=== PATIENT | female | born 1995 | race Caucasian/White ===

== ENCOUNTER 2021-09-11 15:32 | Inpatient (IN) | payer MEDICAID, SELFPAY ==
[~2021-09-11] VITALS: Ht 160 cm; Wt 51.3 kg
[2021-09-11 16:44] VITALS: BP 120/79
--- NOTE | 2021-09-11 17:12 | NUR ---
LAB AT BEDSIDE.
--- NOTE | 2021-09-11 17:13 | NUR ---
26 Y/O FEMALE C/O LUQ ABD PAIN 07/30 DESCRIBES ACHING NON-RADIATING X 3 DAYS. DENIES N/V. DENIES FEVER/CHILLS. ABD IS SOFT, ROUND, NON-TENDER, BOWEL SOUNDS ACTIVE X4, LAST BM 09/09/21. DENIES PMH NKA
[2021-09-11 17:22] LABS: BASOPHILS % (AUTO) 0.3 % (0.0-2.0); HEMATOCRIT 40.1 % (36-48); HEMOGLOBIN 13.8 g/dL (12.0-16.0); LYMPHOCYTES % (AUTO) 5.9 % (20.5-51.1); MEAN CORPUSCULAR HEMOGLOBIN 31 pg (27-31); MEAN CORPUSCULAR HGB CONC 34 g/dL (33-37); MEAN CORPUSCULAR VOLUME 90.2 fL (80-94); MONOCYTES # (AUTO) 0.7 K/uL (0.8-1.0); MONOCYTES % (AUTO) 3.7 % (1.7-9.3); NEUTROPHILS # (AUTO) 15.8 K/uL (1.8-7.7); NEUTROPHILS % (AUTO) 90.1 % (42.2-75.2); PLATELET COUNT (AUTO) 303 K/uL (140-450); RED BLOOD CELL COUNT(AUTO) 4.45 MIL/uL (4.20-5.40); RED CELL DISTRIBUTION WIDTH 12.6 % (11.6-13.7); WHITE BLOOD COUNT (AUTO) 17.5 K/uL (4.8-10.8)
[2021-09-11 17:39] LABS: ALBUMIN 4.3 g/dL (3.4-5.0); ANION GAP 19.1 (8-16); CREATININE 0.8 mg/dL (0.6-1.3); POTASSIUM 4.1 mmol/L (3.5-5.1); TOTAL BILIRUBIN 0.4 mg/dL (0.0-1.0)
--- NOTE | 2021-09-11 18:00 | NUR ---
DR SINCLAIR AT BEDSIDE.
--- NOTE | 2021-09-11 18:46 | NUR ---
DR SINCLAIR AT BEDSIDE STARTED IV ON R AC VIA ULTRASOUND.
--- NOTE | 2021-09-11 18:49 | NUR ---
[facility]
--- NOTE | 2021-09-11 19:06 | NUR ---
BACK FROM CT SCAN.
--- NOTE | 2021-09-11 19:43 | NUR ---
PT HELPED TO RESTROOM.
[2021-09-11] MEDS ORDERED: MORPHINE SULFATE 4 MG/ML SYR IVP ONE ×2 (19:50→20:55)
--- NOTE | 2021-09-11 20:01 | NUR ---
US AT BEDSIDE.
--- NOTE | 2021-09-11 21:16 | NUR ---
Patient appears to be resting comfortably in bed. Vital Signs within normal limits. Respirations even and unlabored. BOTH BEDRAILS UP AND BED AT LOWEST POSITION.
[2021-09-11] MEDS ORDERED: PIPERACILLIN/TAZOBACTAM 3.375 GM in DEXTROSE 5% 50 ML IV ONE ×2 (21:50→22:18)
[2021-09-11] MEDS ORDERED: NACL 0.9% 1,000 ML IV ONE ×2 (21:50)
[2021-09-11] MEDS ORDERED: DEXT 5% / NACL 0.9% 1,000 ML IV SCH ×2 (22:00→22:15)
--- NOTE | 2021-09-11 22:00 | NUR ---
DR. Olivia AT BEDSIDE.
--- NOTE | 2021-09-11 22:01 | NUR ---
Patient will be admitted to care of GERARDO TEIXEIRA. Admited to MED SURG. Will go to room 119B. Belongings list completed. Report to GERARDO TEIXEIRA.
[2021-09-11] MEDS ORDERED: PIPERACILLIN/TAZOBACTAM 3.375 GM VIAL IV ONE (22:42)
--- NOTE | 2021-09-11 23:15 | NUR ---
RECEIVED REPORT FOR PT OVER THE PHONE FROM ER NURSE. PT IN STABLE CONDITION.
[2021-09-11 23:30] VITALS: BP 123/81
[2021-09-12] MEDS ORDERED: ZOLPIDEM 5 MG TAB PO PRN (00:15)
[2021-09-12] MEDS ORDERED: guaiFENesin DM 200/20 MG-10 ML 10 ML UDC PO PRN (00:15)
[2021-09-12] MEDS ORDERED: ONDANSETRON 4 MG/2 ML VIAL IM/IVP PRN (00:15)
[2021-09-12] MEDS ORDERED: ACETAMINOPHEN 325 MG TAB PO PRN (00:15)
[2021-09-12] MEDS ORDERED: DOCUSATE SODIUM 100 MG GELCAP PO PRN (00:15)
[2021-09-12] MEDS ORDERED: HYDROcodone/APAP 7.5/325 MG 1 TAB PO PRN (00:15)
[2021-09-12] MEDS ORDERED: MORPHINE SULFATE 2 MG/ML SYR IVP PRN ×2 (00:15→17:35)
[2021-09-12 00:41] LABS: APPEARANCE,URINE CLOUDY (CLEAR); BILIRUBIN,URINE NEGATIVE (NEGATIVE); BLOOD, URINE 2+ (NEGATIVE); COLOR,URINE YELLOW (YELLOW); LEUKOCYTE ESTERASE ,URINE NEGATIVE (NEGATIVE); NITRITE, URINE NEGATIVE (NEGATIVE); UGLUCOSE NEGATIVE (NEGATIVE)
[2021-09-12 00:49] LABS: RBC,URINE 0-5 /HPF (0-5); URINE AMORPHOUS URATE 3+ /HPF (None Seen); WBC,URINE 0-5 /HPF (0-5)
[2021-09-12 00:50] LABS: BARBITURATE, URINE NEGATIVE ng/ml (NEG <=200)
[2021-09-12 00:51] LABS: BENZODIAZEPINE, URINE NEGATIVE ng/mL (NEG <=200); CANNABINOID, URINE NEGATIVE ng/mL (NEG <=50); COCAINE, URINE NEGATIVE ng/mL (NEG <=300); OPIATE, URINE NEGATIVE ng/mL (NEG <=2000); PHENCYCLIDINE SCREEN,URINE NEGATIVE ng/mL (NEG <=25)
[2021-09-12 00:51] LABS: PROTHROMBIN TIME 8.9 secs (10.8-13.4)
[2021-09-12 00:54] LABS: CHOL/HDL RATIO 3.1 (1-4.5); FREE T4 (FREE THYROXINE) 0.98 ng/dL (0.76-1.46); MAGNESIUM 2.2 mg/dL (1.8-2.4); PHOSPHORUS 3.6 mg/dL (2.5-4.9); THYROID STIMULATING HORMONE 0.64 uIU/mL (0.34-3.74)
[2021-09-12] MEDS: DEXT 5% /NACL 0.9% 1,000 ML IV SCH ×4 (01:24→23:41)
--- NOTE | 2021-09-12 01:30 | NUR ---
PT WHEELED BY TERRANCE TO ROOM 119, SHE AMBULATED INDEPENDENTLY TO BED B. SHE IS A0X4 [place] AND [place] SPEAKING SHE IS ON ROOM AIR, AND SKIN INTACT. MRSA SWAB DONE, IV SITE 20G ON RIGHT F/ARM INTACT. MD ORDERED D5N/S TO RUN AT 120 MLS/HR. IV FLUIDS HUNG AND RUNNING ORDERED. USED [employer] INDEPENDENT FILM MAKER SYSTEM WITH INDEPENDENT FILM MAKER RAPHEL . ADMISSION QUESTIONS TRANSLATED. PT C/OF 10/10 PAIN AND WAS GIVEN ORDERED IVP MORPHINE. CXR AND EKG DONE AT BEDSIDE. ALL UNIVERSAL FALLS PRECAUTIONS IN PLACE.
[2021-09-12 04:00] VITALS: BP 126/78
[2021-09-12] MEDS ORDERED: PIPERACILLIN/TAZOBACTAM 3.375 GM VIAL IV ONE (05:38)
[2021-09-12] MEDS: PIPERACILLIN/TAZOBACTAM 3.375 GM in DEXTROSE 5% 50 ML IV SCH ×4 (05:44→21:12)
[2021-09-12 05:54] LABS: BASOPHILS % (AUTO) 0.3 % (0.0-2.0); EOSINOPHILS # (AUTO) 0.1 K/uL (0-0.4); EOSINOPHILS % (AUTO) 0.6 % (0.0-4.0); HEMATOCRIT 34.8 % (36-48); HEMOGLOBIN 12.1 g/dL (12.0-16.0); LYMPHOCYTES # (AUTO) 1.9 K/uL (2.5-16.5); LYMPHOCYTES % (AUTO) 19.3 % (20.5-51.1); MEAN CORPUSCULAR HEMOGLOBIN 31 pg (27-31); MEAN CORPUSCULAR HGB CONC 35 g/dL (33-37); MEAN CORPUSCULAR VOLUME 89.8 fL (80-94); MONOCYTES # (AUTO) 0.8 K/uL (0.8-1.0); MONOCYTES % (AUTO) 8.6 % (1.7-9.3); NEUTROPHILS % (AUTO) 71.2 % (42.2-75.2); PLATELET COUNT (AUTO) 280 K/uL (140-450); RED BLOOD CELL COUNT(AUTO) 3.87 MIL/uL (4.20-5.40); RED CELL DISTRIBUTION WIDTH 12.5 % (11.6-13.7); WHITE BLOOD COUNT (AUTO) 9.8 K/uL (4.8-10.8)
--- NOTE | 2021-09-12 06:03 | NUR ---
PT RECEIVED PRESCRIBED ABX ORDERED. EXPLAIN PT WHY SHE IS RECEIVING IT AND VERBALIZING UNDERSTANDING. PT STATED SHE IS IN PAIN 10/10. NO FACIAL GRIMACING NOTED, VITAL SIGNS STABLE, NO GUARDING, AND RELAXED. EXPLAINED THAT HER NEXT PAIN MEDICATION ISN'T DUE FOR ANOTHER TWO HOURS. EXPLAINED I'LL CONTACT MD FOR ADDITIONAL PAIN MEDICATION.
[2021-09-12 06:17] LABS: ALBUMIN 3.3 g/dL (3.4-5.0); ANION GAP 15.7 (8-16); CARBON DIOXIDE 22.7 mmol/L (21-32); CREATININE 0.6 mg/dL (0.6-1.3); POTASSIUM 3.4 mmol/L (3.5-5.1); TOTAL BILIRUBIN 0.7 mg/dL (0.0-1.0)
--- NOTE | 2021-09-12 07:12 | NUR ---
RECEIVED REPORT FROM PERSONNEL INTERVIEWER NURSE FOR CONTINUITY OF CARE. PT STABLE. NO S/S OF DISTRESS. BREATHING SYMMETRICAL. CALL LIGHT IN REACH. ALL SAFETY MEASURES IN PLACE. IV RUNNING PER MD ORDER.
[2021-09-12 08:00] VITALS: BP 121/79
--- NOTE | 2021-09-12 08:16 | NUR ---
PATIENT HAS BEEN SCREENED AND CATEGORIZED LOW NUTRITION RISK. PATIENT WILL BE SEEN WITHIN 7 DAYS OF ADMISSION. 09/18/[address]
[2021-09-12] MEDS: PANTOPRAZOLE 40 MG TABEC PO SCH ×2 (09:00→09:31)
[2021-09-12] MEDS: POTASSIUM CHLORIDE 10 MEQ TABER PO PRN ×2 (09:31→09:36)
--- NOTE | 2021-09-12 09:43 | NUR ---
PT RESTING IN BED. FAMILY AT BEDSIDE. PT STABLE. NO S/S OF DISTRESS. BREATHING SYMMETRICAL. CALL LIGHT IN REACH. ALL SAFETY MEASURES IN PLACE. IV RUNNING PER MD ORDER. PT PROVIDED COPY OF ADVANCE DIRECTIVE FOR BLOOD TRANSFUSION. PT STATED NOT WANTING ANY BLOOD PRODUCTS D/T [employer]IEFS
--- NOTE | 2021-09-12 12:36 | NUR ---
OR NURSE TAKING PT FOR PROCEDURE. ZOSYN TO CONTINUE RUNNING IN OR. PT STABLE. NO S/S OF DISTRESS. ALL SAFETY MEASURES IN PLACE
[2021-09-12] MEDS ORDERED: LIDOCAINE 1% 500 MG/50 ML VIAL ONE (12:48)
[2021-09-12] MEDS ORDERED: BUPIVACAINE-MPF/EPI 0.5% 30 ML VIAL INJ ONE (12:48)
[2021-09-12] MEDS ORDERED: PROPOFOL 200 MG/20 ML VIAL IV ONE (13:13)
[2021-09-12] MEDS ORDERED: MIDAZOLAM 2 MG/2 ML VIAL ONE (13:13)
[2021-09-12] MEDS ORDERED: NEOSTIGMINE 1:1000 10 MG/10 ML VIAL ONE (13:13)
[2021-09-12] MEDS ORDERED: GLYCOPYRROLATE 0.2 MG/ML VIAL ONE (13:13)
[2021-09-12] MEDS ORDERED: METOCLOPRAMIDE 10 MG/2 ML INJ VIAL ONE (13:13)
[2021-09-12] MEDS ORDERED: SUCCINYLCHOLINE CHLORIDE 200 MG/10 ML VIAL IVP ONE (13:13)
[2021-09-12] MEDS ORDERED: SEVOFLURANE 250 ML BTL INH ONE (13:13)
[2021-09-12] MEDS ORDERED: DEXAMETHASONE 4 MG/ML VIAL ONE (13:13)
[2021-09-12] MEDS ORDERED: HYDROmorphone PFS 2 MG/ML SYR ONE (13:14)
--- NOTE | 2021-09-12 14:33 | NUR ---
PT IS STILL IN OR.
[2021-09-12 16:00] VITALS: BP 134/84
--- NOTE | 2021-09-12 16:24 | NUR ---
PT RETURNED FROM PROCEDURE. NO S/S OF DISTRESS. FLUIDS RUNNING PER MD ORDER. CALL LIGHT IN REACH. ALL SAFETY MEASURES IN PLACE
[2021-09-12] MEDS ORDERED: HYDROcodone/APAP 5/325 MG 1 TAB TAB PO PRN (17:35)
[2021-09-12] MEDS ORDERED: HYDROmorphone 1 MG/ML AMP IVP PRN (17:35)
[2021-09-12] MEDS ORDERED: ONDANSETRON 4 MG/2 ML VIAL IV PRN (17:35)
--- NOTE | 2021-09-12 18:35 | NUR ---
ASSISTED PT TO RESTROOM. RETAPED IV, IV PATENT. NO S/S OF DISTRESS. CHANGED PT GOWN AND CHUCKS. CALL LIGHT IN REACH. ALL SAFETY MEASURES IN PLACE. FAMILY AT BEDSIDE
--- NOTE | 2021-09-12 19:22 | NUR ---
ENDORSED PATIENT TO TRIPE WASHER NURSE. NO S/S OF DISTRESS. BREATHING SYMMETRICAL. CALL LIGHT IN REACH. ALL SAFETY MEASURES IN PLACE.
--- NOTE | 2021-09-12 19:30 | NUR ---
RECEIVED PT FROM DAY RN. PT IS AWAKE ON RA. BY BEDSIDE. CALL LIGHT WITHIN REACH. ALL SAFETY MEASURES TAKEN. WILL CONTINUE TO MONITOR AND PROVIDE PLAN OF CARE.
[2021-09-12 20:00] VITALS: BP 126/73
--- NOTE | 2021-09-12 20:00 | NUR ---
PT LYING IN BED AOX 4 SHE IS ON ROOM AIR AND HAS IV SITE RAC 20G RUNNING D5N/S AT 120. PT HAS 4 SURGICAL SCARS ON ABDOMEN , THEY ARE SMALL AND CLOSED WITH DERMABOND, THERE IS NO S/S OF INFECTION. PT COMPLETED MOST OF HER DINNER. V/S FOLLOWS: T 98.1 P 100 R 18 B/P 126/73 02 95% ON ROOM AIR. ALL UNIVERSAL FALLS PRECAUTIONS IN PLACE.
[2021-09-12] MEDS: MORPHINE SULFATE 4 MG/ML SYR IV PRN (21:16)
--- NOTE | 2021-09-12 21:20 | NUR ---
PT STAND BY ASSIST TO TOILET AND BACK , SHE WAS ABLE TO AMBULATE WITH A STEADY GAIT. ZOSYN HUNG AND RUNNING ORDERED. PT ALSO RECEIVED REQUESTED MORPHINE FOR SEVERE PAIN. EDUCATION REGARDING MEDICATION PROVIDED AT BEDSIDE. PT VERBALIZED UNDERSTANDING,. ALL UNIVERSAL FALLS PRECAUTIONS IN PLACE.
--- NOTE | 2021-09-12 23:00 | NUR ---
ROUNDS DONE, PT IN BED ASLEEP WITH NO C/O VOICED. FLUIDS REPLACED AND RUNNING ORDERED. ALL UNIVERSAL FALLS PRECAUTIONS IN PLACE.
[2021-09-13] MEDS: PIPERACILLIN/TAZOBACTAM 3.375 GM in DEXTROSE 5% 50 ML IV SCH (04:24)
[2021-09-13] MEDS: POTASSIUM CHLORIDE 10 MEQ TABER PO PRN (04:24)
[2021-09-13] MEDS: MORPHINE SULFATE 4 MG/ML SYR IV PRN ×2 (04:25→08:47)
--- NOTE | 2021-09-13 04:30 | NUR ---
PT C/O 10/10 PAIN IN ABDOMEN, SHE WAS GIVEN IVP MORPHINE . PT POTASSIUM LEVEL 3.4, SHE WAS GIVEN SUPPLEMENTAL POTASSIUM K DUR. ALSO ORDERED IV ABT ZOSYN HUNG AND RUNNING AT 100MLS/HR. ALL UNIVERSAL FALLS PRECAUTIONS IN PLACE.
[2021-09-13 05:51] LABS: BASOPHILS % (AUTO) 0.3 % (0.0-2.0); EOSINOPHILS % (AUTO) 0.1 % (0.0-4.0); HEMATOCRIT 34.6 % (36-48); HEMOGLOBIN 11.8 g/dL (12.0-16.0); MEAN CORPUSCULAR HEMOGLOBIN 31 pg (27-31); MEAN CORPUSCULAR HGB CONC 34 g/dL (33-37); MEAN CORPUSCULAR VOLUME 90.9 fL (80-94); MONOCYTES # (AUTO) 0.7 K/uL (0.8-1.0); MONOCYTES % (AUTO) 6.4 % (1.7-9.3); NEUTROPHILS # (AUTO) 8.8 K/uL (1.8-7.7); NEUTROPHILS % (AUTO) 76.2 % (42.2-75.2); PLATELET COUNT (AUTO) 274 K/uL (140-450); RED BLOOD CELL COUNT(AUTO) 3.81 MIL/uL (4.20-5.40); RED CELL DISTRIBUTION WIDTH 12.7 % (11.6-13.7); WHITE BLOOD COUNT (AUTO) 11.6 K/uL (4.8-10.8)
[2021-09-13 06:10] LABS: ALBUMIN 3.3 g/dL (3.4-5.0); ANION GAP 14.4 (8-16); CARBON DIOXIDE 24.9 mmol/L (21-32); CREATININE 0.5 mg/dL (0.6-1.3); POTASSIUM 3.3 mmol/L (3.5-5.1); TOTAL BILIRUBIN 0.6 mg/dL (0.0-1.0)
[2021-09-13 08:00] VITALS: BP 122/81
--- NOTE | 2021-09-13 08:17 | NUR ---
Patient awake, alert and oriented, able to verbalize needs. Complains of abdominal pain rating it at 9/10. Safety measures in place and patient has no further needs.
[2021-09-13] MEDS: PANTOPRAZOLE 40 MG TABEC PO SCH (08:46)
[2021-09-13] MEDS: DEXT 5% /NACL 0.9% 1,000 ML IV SCH (09:35)
[2021-09-13] MEDS ORDERED: AMOX-999 PO (10:05)
[2021-09-13] MEDS ORDERED: ACET-10509 PO (10:05)
[2021-09-13] MEDS ORDERED: IBUP-1842 PO (10:05)
[2021-09-13] MEDS ORDERED: POTA10TA70 PO (10:08)
[2021-09-13 10:51] VITALS: BP 122/81
--- NOTE | 2021-09-13 12:08 | NUR ---
Patient discharged and was given information on follow up appointments, medications and all questions regarding discharge were answered. Taken off the unit in wheeled chair and off in private vehicle with family.
--- NOTE | 2021-09-13 13:04 | NUR ---
DC PLANNING: THE PATIENT ADMITTED FROM HOME THROUGH THE ED WITH C/O ABDOMINAL PAIN. CHOLECYSISTIS CONFIRMED, PATIENT HAD A LAP DARIO ON 09/12 WITH FINDINGS OF ACUTE CALCULOUS CHOLECYCSTITIS AND ACUTE INFLAMMATION OF THE GB. THE PATIENT WAS STARTED ON A CLEAR LIQUID DIET POST-OP AND ADVANCED TO A CARDIAC DIET, IV ABX AND PAIN MANAGEMENT WAS ALSO PROVIDED. THE PATIENT DC'D TO HOME AFTER TOLERATING THE ADVANCED DIET AND AMBULATION. CM WILL FOLLOW NEEDED.
[2021-09-13 14:29] LABS: T4 (THYROXINE) 12.1 ug/dL (4.5 - 12.0)
== END 2021-09-13 12:16 | disposition home or self-care (01) | DRG 710 ==
LOC: MED 15:32 → MMU 22:01 → MTU 23:12
PROVIDERS: ADMIT Family Medicine; ATTEND Family Medicine
PROC: 0FT44ZZ Resection of Gallbladder, Percutaneous Endoscopic Approach (ICD-10-PCS; principal; 2021-09-12 14:25)
DX: A41.9 Sepsis, unspecified organism (principal); E44.1 Mild protein-calorie malnutrition; K76.0 Fatty (change of) liver, not elsewhere classified; K80.00 Calculus of gallbladder with acute cholecystitis without obstruction; N39.0 Urinary tract infection, site not specified; E87.6 Hypokalemia; E78.5 Hyperlipidemia, unspecified; E86.0 Dehydration; R74.01 Elevation of levels of liver transaminase levels; Z20.822 Contact with and (suspected) exposure to COVID-19
CPT/HCPCS: 36415; 71045; 76700; 80053; 80305; 81001; 81025; 82150; 82374; 83036; 83690; 83735; 83880; 84100; 84436; 84439; 84443; 84479; 84484; 85025; 85610; 85730; 86886; 86900; 86901; 87081; 87086; 93005; 96361; 96365; 96375; 96376; 99285; J0330; J1100; J1170; J2001; J2250; J2270; J2543; J2704; J2710; J2765; J3490; J7030; J7060; J7120; Q0092; Q9967